=== PATIENT | female | born 1970 | race Caucasian/White ===

== ENCOUNTER → 2023-03-20 | Outpatient (CLI) | payer BC ==
[2017-06-03 12:23] VITALS: BP 114/57
[~2023-03-20] MED LIST: CYCLOBENZAPRIN7.5 MG PO; GOOD NEIGHBOR200 M1 PO; HYZAAR 50-12.51 EACH PO; LEVO-T125 MCG PO; MELOXICAM15 MG PO; NORCO 325 MG-51 TA1 PO; SYNTHROID RP0.1 MG PO
== END ==
LOC: MAMMO 10:43
DX: Z12.31 Encounter for screening mammogram for malignant neoplasm of breast (principal)